=== PATIENT | male | born 2000 | race Caucasian/White ===

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

== ENCOUNTER 2020-07-06 21:09 | Emergency (ER) | payer OTHER ==
[~2020-07-06] VITALS: Ht 182.8 cm; Wt 104.3 kg
[2020-07-06 21:40] VITALS: BP 168/82
[2020-07-06] MEDS ORDERED: PRD20T PO (22:19)
--- NOTE | 2020-07-06 22:19 | ED Integumentary General ---
General Chief Complaint: Allergic Reaction Stated Complaint: RASH Nursing Triage Note: TO ED VIA POV AND AMBULATORY TO FT2 WITH C/O RASH THAT STARTED APPROX 1630 WHEN LEAVING WORK. TOOK BENADRYL AT 1730. DENIES EATING ANY THING NEW. DENIES NEW SOAPS, DETERGENTS. Source: patient Exam Limitations: no limitations History of Present Illness Date Seen by Provider: Jul 06, 2020 Time Seen by Provider: 22:10 Initial Comments This is a healthy-appearing 20-year-old male who presents to the ER with complaints of pruritic rash on his arms and torso that started around 1430 this evening. Denies any new foods, lotions, or soaps. Denies any new meds or foods. Has unknown exposure. Took Benadryl 25mg PO around 1730 this evening. Denies fever, chills, sore throat, cough, shortness of breath, chest pain, nausea/vomiting/ diarrhea. Allergies and Home Medications Allergies Coded Allergies: No Known Drug Allergies (Unverified , 04/26/10) Home Medications Azithromycin 250 Mg Tab, 2 TAB PO DAILY 2 now, 1 daily Prescribed by: EREN FOX on 06/15/14 0746 Prednisone 20 Mg Tab, 20 MG PO DAILY Prescribed by: GENESIS SHIRLEY on 07/06/209 Patient Home Medication List Home Medication List Reviewed: Yes Review of Systems Review of Systems Constitutional: no symptoms reported EENTM: no symptoms reported Respiratory: no symptoms reported Cardiovascular: no symptoms reported Gastrointestinal: no symptoms reported Genitourinary: no symptoms reported Musculoskeletal: no symptoms reported Skin: see HPI Psychiatric/Neurological: No Symptoms Reported Endocrine: No Symptoms Reported Hematologic/Lymphatic: No Symptoms Reported Past Amayxes-Bevbfa-Qjkist Hx Patient Social History Alcohol Use: Occasionally Uses Recreational Drug Use: No Smoking Status: Never a Smoker Recent Foreign Travel: No Contact w/Someone Who Travel: No Recent Infectious Disease Expo: No Physical Abuse: No Sexual Abuse: No Mistreated: No Fear: No Past Medical History Surgeries: Yes (HERNIA REPAIR) Adenoidectomy, Tonsillectomy Respiratory: No Cardiac: No Neurological: No Genitourinary: No Gastrointestinal: No Musculoskeletal: No Endocrine: No HEENT: No Cancer: No Psychosocial: No Integumentary: No Physical Exam Vital Signs Vital Signs - First Documented 07/06/20 21:40 Temp 36.2 Pulse 82 Resp 16 B/P (MAP) 168/82 (110) O2 Delivery Room Air Capillary Refill : Less Than 3 Seconds General Appearance: WD/WN, no apparent distress HEENT: PERRL/EOMI, normal ENT inspection, pharynx normal Neck: full range of motion, supple, normal inspection Cardiovascular: regular rate, rhythm, no murmur Respiratory: lungs clear, normal breath sounds Gastrointestinal: normal bowel sounds, non tender, soft Extremities: normal range of motion, normal inspection Neurologic/Psychiatric: no motor/sensory deficits, alert, normal mood/affect, oriented x 3 Skin Problem Location: upper extremities, torso Skin Problem Character: erythema, urticarial Progress/Results/Core Measures Results/Orders My Orders Orders - GENESIS SHIRLEY APRN Prednisone Tablet (Deltasone Tablet) (07/06/20 22:30) Vital Signs/I&O 07/06/20 21:40 Temp 36.2 Pulse 82 Resp 16 B/P (MAP) 168/82 (110) O2 Delivery Room Air Blood Pressure Mean: 110 Progress Progress Note : Progress Note Pt examined and in no distress. Unknown exposure. Discussed using Benadryl and a short course of steroids to reduce symptoms. Reviewed discharge plan and he is agreeable with plan. Departure Impression Primary Impression: Urticaria Disposition: 01 HOME, SELF-CARE Condition: Stable/Unchanged Departure-Patient Inst. Decision time for Depature: 22:16 Referrals: CAM BLISS MD (PCP/Family) Primary Care Physician Patient Instructions: Hives Add. Discharge Instructions: Plan: 1. Discharge home. Take Benadryl 25mg by mouth every 6 hours as needed for itching/rash. 2. Take Prednisone as directed and take with food. 3. Follow up with your primary care provider if your symptoms persist. 4. Return for any new or concerning symptoms. All discharge instructions reviewed with patient and/or family. Voiced understanding. Scripts Prednisone (Prednisone) 20 Mg Tab 20 MG PO DAILY for Itching and Rash for 4 Days, #4 TAB 0 Refills Prov: GENESIS SHIRLEY CHEESE WEIGHER 07/06/20 GENESIS SHIRLEY CHEESE WEIGHER Jul 06, 2020 22:19
[2020-07-06] MEDS ORDERED: predniSONE 20 MG TAB PO ONE (22:30)
== END 2020-07-06 22:28 | disposition home or self-care (01) ==
LOC: EDUNIT# 21:09 → ER 21:11
DX: L50.9 Urticaria, unspecified (principal); Z79.52 Long term (current) use of systemic steroids
CPT/HCPCS: 99283